=== PATIENT | female | born 1935 | race Caucasian/White ===

== ENCOUNTER 2016-07-22 17:48 | Inpatient (IN) | payer MEDICARE ==
[2016-07-22] MEDS ORDERED: SODIUM CHLORIDE 0.9% 500 ML IV STA (18:03)
[2016-07-22] MEDS ORDERED: NITROGLYCERIN SL TABS 0.4 MG TAB SUBLINGUAL STA ×2 (18:10→19:56)
[2016-07-22] MEDS ORDERED: ASPIRIN 81 MG CHEW PO STA (18:10)
--- NOTE | 2016-07-22 18:14 | ED ---
Chest Pain HPI <RaulHusam - Last Filed: 07/22/16 21:09> - General Source: patient, family, RN notes reviewed Mode of arrival: wheelchair Limitations: no limitations <Andreia Thompson - Last Filed: 07/22/16 21:19> - General Chief Complaint: Chest Pain Stated Complaint: chest pain Time Seen by Provider: 07/22/16 18:03 - History of Present Illness Initial Comments: Patient is an 81-year-old female presenting to the with chief complaint of chest pain heaviness and pain. She is reports that is been occurring for the entire day and seems to be worse with exertion. She reports that the pain is diminished when she is laying down and resting. She does have a history of A. fib and CHF and is currently on eliquis. Patient reports that she does feel nauseated. She also states that she's felt short of breath. She states that she's had no history of cardiac stents. Patient has a past medical history significant for breast, uterine cancer, it a TIA 6 years ago. She reports that she sees a gift consultant a [facility] however she does not recall the name and she last saw him approximately 4 months ago. She states she does have some chronic swelling of her lower legs and she denies any significant change number operator the past few days. Patient denies any cough. She denies any fever or chills. Patient denies any recent fever, chills, back pain, abdominal pain , nausea vomiting, numbness or tingling, dysuria or hematuria, constipation or diarrhea, headaches or visual changes, or any other current symptoms. ( Andreia Thompson) - Related Data Home Medications Medication Instructions Recorded Confirmed Anastrozole [Arimidex] 1 mg PO DAILY 07/22/16 07/22/16 Apixaban [Eliquis] 2.5 mg PO BID 07/22/16 07/22/16 Aspirin 81 mg PO DAILY 07/22/16 07/22/16 Furosemide [Lasix] 20 mg PO DAILY 07/22/16 07/22/16 Isosorbide Mononitrate ER [Imdur] 30 mg PO DAILY 07/22/16 07/22/16 Labetalol [Trandate] 200 mg PO BID 07/22/16 07/22/16 Latanoprost [Xalatan 0.005%] 1 drop LEFT EYE HS 07/22/16 07/22/16 Losartan Potassium [Cozaar] 100 mg PO DAILY 07/22/16 07/22/16 NIFEdipine [NIFEdipine ER] 30 mg PO DAILY 07/22/16 07/22/16 Simvastatin [Zocor] 10 mg PO HS 07/22/16 07/22/16 Allergies Allergy/AdvReac Type Severity Reaction Status Date / Time No Known Allergies Allergy Verified 07/22/16 18:26 Review of Systems ROS Other: All systems not noted in ROS Statement are negative. <Husam Carter - Last Filed: 07/22/16 21:09> ROS Other: All systems not noted in ROS Statement are negative. <Andreia Thompson - Last Filed: 07/22/16 21:19> ROS Statement: Those systems with pertinent positive or pertinent negative responses have been documented in the HPI. EKG Findings - EKG Comments: EKG Findings:: EKG shows atrial fibrillation ventricular rate 90 bpm. QRS duration is 74 ms. QT/QTc is 344/439 ms. Septal infarct age undetermined. <Andreia Thompson - Last Filed: 07/22/16 21:19> Past Medical History Past Medical History: Atrial Fibrillation, Cancer, Heart Failure Additional Past Medical History / Comment(s): breast, skin, endometrial cancers History of Any Multi-Drug Resistant Organisms: None Reported Additional Past Surgical History / Comment(s): left breast lumpectomy, Past Psychological History: No Psychological Hx Reported Smoking Status: Former smoker Past Alcohol Use History: None Reported Past Drug Use History: None Reported <Andreia Thompson - Last Filed: 07/22/16 21:19> General Exam <Husam Carter - Last Filed: 07/22/16 21:09> Limitations: no limitations General appearance: alert, in no apparent distress Head exam: Present: atraumatic, normocephalic, normal inspection Eye exam: Present: normal appearance, PERRL, EOMI. Absent: scleral icterus, conjunctival injection, periorbital swelling ENT exam: Present: normal exam, mucous membranes moist Neck exam: Present: normal inspection. Absent: tenderness, meningismus, lymphadenopathy Respiratory exam: Present: normal lung sounds bilaterally, other (evidence of mastectomy.). Absent: respiratory distress, wheezes, rales, rhonchi, stridor Cardiovascular Exam: Present: normal rhythm, normal heart sounds. Absent: regular rate (patient has limited S2 sound with afib.), systolic murmur, diastolic murmur, rubs, gallop, clicks GI/Abdominal exam: Present: soft, normal bowel sounds. Absent: distended, tenderness, guarding, rebound, rigid Extremities exam: Present: normal inspection, full ROM, normal capillary refill , pedal edema (3+ bilateral pedal edema. She reports that this is no significant change.). Absent: tenderness, joint swelling, calf tenderness Back exam: Present: normal inspection Neurological exam: Present: alert, oriented X3, CN II-XII intact Psychiatric exam: Present: normal affect, normal mood Skin exam: Present: warm, dry, intact, normal color. Absent: rash <Andreia Thompson - Last Filed: 07/22/16 21:19> - General Exam Comments Initial Comments: Patient is a pleasant 81-year-old female. She is hard of hearing. She is on appear to be in any acute distress. (Andreia Thompson) Course <Husam Carter - Last Filed: 07/22/16 21:09> <Andreia Thompson - Last Filed: 07/22/16 21:19> Vital Signs 07/22/16 07/22/16 07/22/16 17:51 18:43 20:11 Temperature 97.8 F Pulse Rate 61 118 H 73 Respiratory 18 18 20 Rate Blood Pressure 140/84 149/67 158/114 O2 Sat by Pulse 95 99 98 Oximetry - Reevaluation(s) Reevaluation #1: 07/22/16 18:41 Patient is reevaluated before receiving nitro and she reports that her pain is somewhat diminished. She recurrently rates it a 4 out of 10. She states that the pain subsides when she is resting and laying down. (Andreia Thompson) Reevaluation #2: Patient is felt to be given nitroglycerin and stated that she is virtually pain- free at this time we'll hold on nitro. (Andreia Thompson) Chest Pain MDM <Husam Carter - Last Filed: 07/22/16 21:09> <Andreia Thompson - Last Filed: 07/22/16 21:19> - [facility] Medical decision making. I discussed with the patient her discomfort was probably started yesterday continued today no pain at rest. Numbers show her BMP to be 7700 chest x-ray did not showing any significant CHF but she does have chronic peripheral edema. The patient's troponin was 0.6. And she is on L Oquist. Her EKG does not show any acute ST elevation. She is in chronic A. fib. The patient's case discussed with Dr. Gilmore, she'll be admitted to his service with cardiology consultation. Patient to continue on L Oquist for an at this time. Cardiology consult pending. Dr. Carter (Husam Carter) Patient is a 1-year-old female presenting to the with 1 day of chest pain with ambulation. She does have a history of A. fib and is currently on all questions. Patient upon arrival to the states that she has no chest pain at this time. She denies any shortness of breath. Patient's labs reveal that she has an elevated BNP of 7000 and elevated troponin of .069. Patient's gift consultant is at [facility]. She does not know the name of her gift consultant. Fundraiser will be consulted about starting the patient on heparin given the fact that she is currently on Eliquis. Patient's chest x-ray shows that the heart size is enlarged. No evidence of infiltrate or signs of atelectasis. Mediastinal structures are stable and grossly unremarkable. No evidence for hilar prominence. There is evidence of degenerative changes in the dorsal spine. Occlusion is no evidence of any acute pulmonary disease. The instructed by Dr. cruz. Discussed with Dr. Carter and he did a spacer. The patient. We consulted Dr. Snyder about the patient. (Andreia Thompson) Disposition <Husam Carter - Last Filed: 07/22/16 21:09> Time of Disposition: 21:18 <Andreia Thompson - Last Filed: 07/22/16 21:19> Clinical Impression: CHF (congestive heart failure), Chest pain, Chronic a-fib Disposition: ADMITTED IP TO THIS [facility] Condition: Good Referrals: Nonstaff,Physician [Primary Care Provider] - 1-2 days
--- NOTE | 2016-07-22 18:57 | XR ---
EXAMINATION TYPE: XR chest 2V DATE OF EXAM: 07/22/2016 6:53 PM COMPARISON: NONE HISTORY: Shortness of breath TECHNIQUE: Frontal and lateral views of the chest are obtained. FINDINGS: Scattered senescent parenchymal changes noted. Hyperinflation compatible with COPD. No evidence for infiltrate. No evidence for atelectasis. Heart size is enlarged. Mediastinal structures are stable and grossly unremarkable. No evidence for hilar prominence. Degenerative changes dorsal spine. IMPRESSION: 1. No evidence for acute pulmonary disease.
[2016-07-22 19:01] LABS: Basophils % (A) 0 %; CH 29.5; CHCM 32.5; Eosinophils # (A) 0.2 k/uL (0-0.7); Eosinophils % (A) 2 %; HDW 2.51; HGB 13.2 gm/dL (11.4-16.0); Luc % (Auto) 3; Lymphocytes # (A) 2.3 k/uL (1.0-4.8); Lymphocytes % (A) 32 %; MCH 29.3 pg (25.0-35.0); MCHC 32.2 g/dL (31.0-37.0); Mean Platelet Volume 7.6; Monocytes # (A) 0.4 k/uL (0-1.0); Monocytes % (A) 6 %; Neutrophils # (A) 4.1 k/uL (1.3-7.7); Neutrophils % (A) 57 %; RBC 4.51 m/uL (3.80-5.40); RDW 13.9 % (11.5-15.5); WBC 7.1 k/uL (3.8-10.6); WBC (Perox) 6.98
[2016-07-22 19:13] LABS: ALT 27 U/L (9-52); AST 27 U/L (14-36); Alkaline Phosphatase 75 U/L (38-126); Anion Gap 11 mmol/L; Blood Urea Nitrogen 22 mg/dL (7-17); Calcium 9.7 mg/dL (8.4-10.2); Carbon Dioxide 24 mmol/L (22-30); Chloride 108 mmol/L (98-107); Glucose 133 mg/dL (74-99); Magnesium 1.4 mg/dL (1.6-2.3); Non-African American GFR(MDRD) 54 (>60 ml/min/1.73 sqM); Potassium 4.4 mmol/L (3.5-5.1); Sodium 143 mmol/L (137-145); Total Bilirubin 0.8 mg/dL (0.2-1.3); Total Protein 6.5 g/dL (6.3-8.2)
[2016-07-22 19:41] LABS: Creatine Kinase MB 1.9 ng/mL (0.0-2.4)
[2016-07-22 19:47] LABS: INR 1.1 (<1.1); Partial Thromboplastin Time 24.8 sec (22.0-30.0); Prothrombin Time 10.7 sec (9.0-12.0)
[2016-07-22 19:49] LABS: Troponin I 0.609 ng/mL (0.000-0.034)
[2016-07-22] MEDS ORDERED: NITROGLYCERIN SL TABS 0.4 MG TAB SUBLINGUAL PRN (21:10)
[2016-07-23] MEDS ORDERED: ALBUTEROL NEBULIZED 2.5 MG/3 ML INHALATION STA (01:24)
[2016-07-23 01:56] LABS: Troponin I 0.575 ng/mL (0.000-0.034)
[2016-07-23 07:49] LABS: Cholesterol 122 mg/dL (<200); HDL Cholesterol 50 mg/dL (40-60); Triglycerides 144 mg/dL (<150)
[2016-07-23 08:24] LABS: Troponin I 0.519 ng/mL (0.000-0.034)
[2016-07-23] MEDS: ANASTROZOLE 1 MG TAB PO SCH (08:58)
[2016-07-23] MEDS: APIXABAN 2.5 MG TABLET PO SCH ×2 (08:58→20:06)
[2016-07-23] MEDS: ASPIRIN 325 MG TAB PO SCH (08:59)
[2016-07-23] MEDS: LABETALOL 200 MG TAB PO SCH ×2 (08:59→20:06)
[2016-07-23] MEDS: ISOSORBIDE MONONITRATE ER 30 MG TAB.ER.24H PO SCH (08:59)
[2016-07-23] MEDS: LOSARTAN 50 MG TAB PO SCH (09:00)
[2016-07-23] MEDS: NIFEdipine XL 30 MG TAB.ER.24 PO SCH (09:00)
[2016-07-23] MEDS ORDERED: ASPIRIN 81 MG CHEW PO SCH (09:00)
[2016-07-23] MEDS ORDERED: FUROSEMIDE 20 MG TAB PO SCH (09:00)
[2016-07-23] MEDS ORDERED: ENALAPRILAT 1.25 MG/ML 1 ML VIAL IVP PRN (09:00)
[2016-07-23] MEDS ORDERED: METOPROLOL TARTRATE 5 MG/5 ML VIAL IVP PRN (09:13)
[2016-07-23] MEDS ORDERED: FAMOTIDINE 20 MG TAB PO SCH (09:15)
--- NOTE | 2016-07-23 09:51 | P.CRDCN ---
History of Present Illness Consult date: 07/23/16 History of present illness: This is a pleasant 81-year-old female patient who never seen a ripper operator in this area with a past medical history significant for chronic atrial fibrillation, hypertension, dyslipidemia, lives in assisted living and who is also a poor historian was brought to the emergency room because she was not feeling well. According to the emergency room note, the patient presented complaining of chest discomfort. When I interviewed the patient, she denied having any chest pain or chest discomfort but the patient is slightly confused. Currently, the patient is in A. fib with RVR. Clinically, the patient seems to be short of breath. The chest x-ray showed findings consistent with CHF. The BNP came in to be elevated. The EKG showed A. fib with T-wave inversion in the lateral leads. The cardiac enzymes came in to be slightly abnormal. The patient was ruled in for acute coronary event. The patient is in congestive heart failure exacerbation along was A. fib with RVR and she has infarcted. I will obtain an echocardiogram was Doppler. Start the patient on Lasix IV. Continue monitor the kidney function closely. Continue the aspirin and beta glen. I am going to start the patient on Cardizem drip for now and follow- up with her. Overall, I don't think the patient is a good candidate to have invasive approach and heart catheterization. Past Medical History Past Medical History: Atrial Fibrillation, Cancer, Heart Failure, Hyperlipidemia , Syncope Additional Past Medical History / Comment(s): L breast cancer with surgery, skin cancer with removals, endometrial cancers with surgery, TIA 2008, left caratid dx, chronic lower leg edema especially left leg, [place] bilaterally with L ear worse, History of Any Multi-Drug Resistant Organisms: None Reported Past Surgical History: Breast Surgery, Hysterectomy Additional Past Surgical History / Comment(s): left breast lumpectomy, post op L breast incision dehisence with surgery, hysterectomy with lymphectomy, skin cancer removals, pt denies cholecystectomy/hiatal hernia repair but were listed in PMH. Past Anesthesia/Blood Transfusion Reactions: No Reported Reaction Past Psychological History: No Psychological Hx Reported Additional Psychological History / Comment(s): Pt resides in an assisted living apartment (cannot recall the name at this time). She states she can make her own meals or go to the [facility]. She manages her own medications. Her daughter checks on her often and [employer] rules footballer take her to appts. Smoking Status: Former smoker Past Alcohol Use History: None Reported Additional Past Alcohol Use History / Comment(s): Pt states she started smoking in 1952 and quit in 1983. Past Drug Use History: None Reported - Past Family History Mother Family Medical History: No Reported History Father History Unknown: Yes Additional Family Medical History / Comment(s): Father when pt was young after being run over by a vehicle. Medications and Allergies Home Medications Medication Instructions Recorded Confirmed Type Anastrozole [Arimidex] 1 mg PO DAILY 07/22/16 07/22/16 History Apixaban [Eliquis] 2.5 mg PO BID 07/22/16 07/22/16 History Aspirin 81 mg PO DAILY 07/22/16 07/22/16 History Furosemide [Lasix] 20 mg PO DAILY 07/22/16 07/22/16 History Isosorbide Mononitrate ER [Imdur] 30 mg PO DAILY 07/22/16 07/22/16 History Labetalol [Trandate] 200 mg PO BID 07/22/16 07/22/16 History Latanoprost [Xalatan 0.005%] 1 drop LEFT EYE HS 07/22/16 07/22/16 History Losartan Potassium [Cozaar] 100 mg PO DAILY 07/22/16 07/22/16 History NIFEdipine [NIFEdipine ER] 30 mg PO DAILY 07/22/16 07/22/16 History Simvastatin [Zocor] 10 mg PO HS 07/22/16 07/22/16 History Allergies Allergy/AdvReac Type Severity Reaction Status Date / Time No Known Allergies Allergy Verified 07/22/16 18:26 Physical Exam Vitals: Vital Signs Temp Pulse Resp BP Pulse Ox 07/23/16 09:42 114 H 32 H 124/80 97 07/23/16 09:09 143 H 36 H 191/91 100 07/23/16 08:27 148 H 40 H 100 07/23/16 07:00 97 34 H 169/102 100 07/23/16 01:27 79 07/22/16 23:13 98.6 F 111 H 18 168/85 99 07/22/16 21:48 97.8 F 103 H 20 165/85 100 - Constitutional General appearance: no acute distress - Respiratory Respiratory: bilateral: diminished - Cardiovascular Rhythm: irregularly irregular Heart sounds: normal: S1, S2 Results 07/22/16 18:40 07/22/16 18:40 Cardiac Enzymes 07/23/16 07/23/16 Range/Units 00:52 07:14 CK-MB (CK-2) 2.0 2.7 H* (0.0-2.4) ng/mL Troponin I 0.575 H* 0.519 H* (0.000-0.034) ng/mL Lipids 07/23/16 Range/Units 07:14 Triglycerides 144 (<150) mg/dL Cholesterol 122 (<200) mg/dL HDL Cholesterol 50 (40-60) mg/dL Current Medications Generic Name Dose Route Start Last Admin Trade Name Freq PRN Reason Stop Dose Admin Anastrozole 1 mg 07/23/16 09:00 07/23/16 08:58 Arimidex PO 1 mg DAILY BUNNY Administration Apixaban 2.5 mg 07/23/16 09:00 07/23/16 08:58 Eliquis PO 2.5 mg BID BUNNY Administration Aspirin 325 mg 07/23/16 09:00 07/23/16 08:59 Aspirin PO 325 mg DAILY BUNNY Administration Atorvastatin Calcium 5 mg 07/23/16 21:00 Lipitor PO HS [facility] Enalaprilat 1.25 mg 07/23/16 09:00 07/23/16 09:06 Vasotec IVP 1.25 mg Q4HR PRN Administration Blood Pressure - High Famotidine 20 mg 07/23/16 09:15 Pepcid PO BID [facility] Furosemide 20 mg 07/23/16 09:00 07/23/16 08:59 Lasix PO 20 mg DAILY BUNNY Administration Isosorbide Mononitrate 30 mg 07/23/16 09:00 07/23/16 08:59 Imdur PO 30 mg DAILY BUNNY Administration Labetalol HCl 200 mg 07/23/16 09:00 07/23/16 08:59 Trandate PO 200 mg BID BUNNY Administration Latanoprost 1 drops 07/23/16 21:00 Xalatan 0.005% LEFT EYE HS [facility] Losartan Potassium 100 mg 07/23/16 09:00 07/23/16 09:00 Cozaar PO 100 mg DAILY BUNNY Administration Metoprolol Tartrate 5 mg 07/23/16 09:13 Lopressor IVP Q6HR PRN Heart Rate - OVER 120 Nifedipine 30 mg 07/23/16 09:00 07/23/16 09:00 Procardia Xl PO 30 mg DAILY BUNNY Administration Nitroglycerin 0.4 mg 07/22/16 21:10 Nitrostat SUBLINGUAL Q5M PRN Chest Pain Assessment and Plan Plan: Assessment #1 congestive heart failure exacerbation and known if it's systolic or diastolic related #2 acute non-ST elevation myocardial infarction #3 atrial fibrillation with RVR #4 chronic kidney disease #5 multiple comorbidities Plan #1 start the patient on Lasix IV #2 monitor the kidney function and electrolytes #3 start the patient on Cardizem drip #4 continue anticoagulation with Eliquis #5 echocardiogram
--- NOTE | 2016-07-23 10:27 | ECHOF ---
Referral Reason:lv fxn MEASUREMENTS -------- HEIGHT: 152.4 cm WEIGHT: 56.7 kg BP: RVIDd: 2.9 cm (< 3.3) IVSd: 1.2 cm (0.6 - 1.1) LVIDd: 3.6 cm (3.9 - 5.3) LVPWd: 1.2 cm (0.6 - 1.1) IVSs: 1.4 cm LVIDs: 3.0 cm LVPWs: 1.4 cm LAESV Index (A-L): 53.46 ml/m Ao Diam: 2.3 cm (2.0 - 3.7) AV Cusp: 1.0 cm (1.5 - 2.6) LA Diam: 5.0 cm (2.7 - 3.8) MV EXCURSION: 12.538 mm (> 18.000) MV EF SLOPE: 50 mm/s (70 - 150) EPSS: 1.1 cm MV E Ion: 1.22 m/s MV DecT: 200 ms MV A Ion: 0.30 m/s MV E/A Ratio: 4.03 AR PHT: 445 ms RAP: 5.00 mmHg RVSP: 38.18 mmHg FINDINGS -------- Sinus rhythm. This was a technically adequate study. There is mild concentric left ventricular hypertrophy. There is severe global hypokinesis of LV . Overall left ventricular systolic function is severely impaired with, an EF between 20 - 25 %. The right ventricle is normal in size. LA is severely dilated >40 ml/m2 The right atrial size is normal. There is mild aortic valve sclerosis. There is mild aortic regurgitation. Mild mitral annular calcification present. Mild mitral regurgitation is present. Mild tricuspid regurgitation present. There is mild pulmonary hypertension. The right ventricular systolic pressure, as measured by Doppler, is 38.18mmHg. The aortic root size is normal. There is no pericardial effusion. CONCLUSIONS -------- 1. There is mild concentric left ventricular hypertrophy. 2. There is mild pulmonary hypertension. 3. The right ventricular systolic pressure, as measured by Doppler, is 38.18mmHg. 4. The aortic root size is normal. 5. There is no pericardial effusion. 6. There is severe global hypokinesis of LV . 7. Overall left ventricular systolic function is severely impaired with, an EF between 20 - 25 %. 8. LA is severely dilated >40 ml/m2 9. There is mild aortic valve sclerosis. 10. There is mild aortic regurgitation. 11. Mild mitral annular calcification present. 12. Mild mitral regurgitation is present. 13. Mild tricuspid regurgitation present. SENIOR FRONT END WEB DEVELOPER: Eda Dominguez RDCS
--- NOTE | 2016-07-23 11:58 | HP ---
DATE OF ADMISSION: CHIEF COMPLAINT: Chest pain, shortness of breath. HISTORY OF PRESENT ILLNESS: This is the first known admission for this 81-year-old white female. She usually doctors at [facility]. She developed some chest discomfort and shortness of breath and came to the emergency room. She denies diaphoresis. She is a poor historian. She had no neurologic deficits, palpitations, syncope, orthopnea, PND, etc. REVIEW OF SYSTEMS: Otherwise unremarkable and she has no other complaints. Past medical history, family history and personal and social histories are otherwise unremarkable and further the details will be obtained from her primary care provider in [place]. She is not allergic to any medication and apparently was on eyedrops for glaucoma, labetalol 200 mg b.i.d., isosorbide mononitrate 30 mg a day, Lasix 20 mg a day, Arimidex 1 mg once a day, simvastatin 10 mg at bedtime, nifedipine 30 mg once a day, Losartan 100 mg once a day, 81 mg of aspirin and apixaban 2.5 mg b.i.d. She does not smoke. Past medical history, family history and personal and social histories are significant in that she is not allergic to any medication, but she has been treated for endometrial carcinoma and somehow this resulted in chronic edema in the left lower extremity. PHYSICAL EXAMINATION: Blood pressure of 206/119 with a pulse of 86, respirations 30 and she is afebrile. GENERAL: She appeared to be slender, well developed, well nourished in no acute distress. Skin color is normal. Skin is warm and dry. Lymph nodes are not enlarged. Head, ears, eyes, nose, mouth, and throat were normal. Neck veins were not distended. There is either a transmitted murmur or carotid bruits. Chest demonstrated no rales or rhonchi. Cardiac exam demonstrated tachycardia and there was a grade 3/6 diastolic and systolic murmur. ABDOMEN: Soft and nontender. There is no visceromegaly or masses. Extremities demonstrated the left leg being more edematous than the right and she had significant varicose veins in the right lower leg. Neurologically, she is intact. IMPRESSION: 1. Chest pain. 2. Hypertension. 3. Atrial fibrillation. 4. Cardiac murmur. 5. History of endometrial carcinoma. 6. Chronic ( ) or lymphatic edema of the left leg. 7. Varicose veins of the right leg. PLAN: 1. Control hypertension. 2. Rule out significant coronary artery disease.
--- NOTE | 2016-07-23 12:02 | PN ---
DATE OF SERVICE: 07/23/2016 CHIEF COMPLAINT: Hypertension and shortness of breath. HISTORY OF PRESENT ILLNESS: This lady's blood pressure is still quite high, but she is having no chest pain, neurologic difficulties, shortness of breath, etc. PHYSICAL EXAM: Chest is clear. Cardiac exam demonstrates her murmur and she is in atrial fibrillation. ABDOMEN: Soft, nontender. Extremities are unchanged. IMPRESSION: 1. Hypertension. 2. Congestive heart failure. 3. Atrial fibrillation. 4. History of carcinoma of the uterus. PLAN: 1. Control hypertension. 2. Consult Cardiology.
[2016-07-23 13:19] VITALS: BMI 26.0
--- NOTE | 2016-07-23 15:19 | P.HPIM ---
History of Present Illness H&P Date: 07/22/16 Chief Complaint: Chest pressure heart palpitation shortness of breath This is an 81-year-old female who presented on the day of admission to the emergency room to be evaluated for a chief complaint of developing shortness of breath with exertion chest tightness with a nausea sensation. In the emergency room the 12-lead EKG showed atrial fibrillation heart rate was in the 90s to 120s was also noted in the emergency room the patient's blood pressure was significantly elevated systolic 200s. Monitor did show atrial fibrillation the heart rate was in the 120s. Patient is a poor historian has poor past medical history recall. Health history has been obtained from reviewing prior computerized record ER record and interviewing the patient and nursing staff. Patient reportedly lives in assisted living apartment and has been fairly independent. Did note the patient is on a elquist presume for chronic atrial fibrillation. Patient states that she does see a heart doctor at [facility] cannot recall the name states it's been months since she seen him last. Additionally patient was noted to have swelling in the lower extremities which the patient states is chronic left lower extremity greater than the right. A cardiology consultation was requested. An echocardiogram was obtained. It shows left ventricular systolic function severely impaired with an EF between 20 and 25%. There is mild pulmonary hypertension. There is mild concentric left ventricular hypertrophy did note the troponin are elevated as well as a BNP which is 18,000 Review of Systems Difficult to obtain patient has no adequate past medical history recall Past Medical History Past Medical History: Atrial Fibrillation, Cancer, Heart Failure, Hyperlipidemia , Syncope Additional Past Medical History / Comment(s): L breast cancer with surgery, skin cancer with removals, endometrial cancers with surgery, TIA 2008, left caratid dx, chronic lower leg edema especially left leg, [place] bilaterally with L ear worse, History of Any Multi-Drug Resistant Organisms: None Reported Past Surgical History: Breast Surgery, Hysterectomy Additional Past Surgical History / Comment(s): left breast lumpectomy, post op L breast incision dehisence with surgery, hysterectomy with lymphectomy, skin cancer removals, pt denies cholecystectomy/hiatal hernia repair but were listed in PMH. Past Anesthesia/Blood Transfusion Reactions: No Reported Reaction Past Psychological History: No Psychological Hx Reported Additional Psychological History / Comment(s): Pt resides in an assisted living apartment (cannot recall the name at this time). She states she can make her own meals or go to the [facility]. She manages her own medications. Her daughter checks on her often and taffy candy maker take her to app. Smoking Status: Former smoker Past Alcohol Use History: None Reported Additional Past Alcohol Use History / Comment(s): Pt states she started smoking in 1951 and quit in 1983. Past Drug Use History: None Reported - Past Family History Mother Family Medical History: No Reported History Father History Unknown: Yes Additional Family Medical History / Comment(s): Father when pt was young after being run over by a vehicle. Medications and Allergies Home Medications Medication Instructions Recorded Confirmed Type Anastrozole [Arimidex] 1 mg PO DAILY 07/22/16 07/22/16 History Apixaban [Eliquis] 2.5 mg PO BID 07/22/16 07/22/16 History Aspirin 81 mg PO DAILY 07/22/16 07/22/16 History Furosemide [Lasix] 20 mg PO DAILY 07/22/16 07/22/16 History Isosorbide Mononitrate ER [Imdur] 30 mg PO DAILY 07/22/16 07/22/16 History Labetalol [Trandate] 200 mg PO BID 07/22/16 07/22/16 History Latanoprost [Xalatan 0.005%] 1 drop LEFT EYE HS 07/22/16 07/22/16 History Losartan Potassium [Cozaar] 100 mg PO DAILY 07/22/16 07/22/16 History NIFEdipine [NIFEdipine ER] 30 mg PO DAILY 07/22/16 07/22/16 History Simvastatin [Zocor] 10 mg PO HS 07/22/16 07/22/16 History Allergies Allergy/AdvReac Type Severity Reaction Status Date / Time No Known Allergies Allergy Verified 07/22/16 18:26 Physical Exam Vitals: Vital Signs Temp Pulse Resp BP Pulse Ox 07/23/16 12:47 98.3 F 88 20 117/66 98 07/23/16 10:55 74 28 H 112/63 98 07/23/16 09:42 114 H 32 H 124/80 97 07/23/16 09:09 143 H 36 H 191/91 100 07/23/16 08:27 148 H 40 H 100 07/23/16 07:00 97 34 H 169/102 100 07/23/16 01:27 79 07/22/16 23:13 98.6 F 111 H 18 168/85 99 07/22/16 21:48 97.8 F 103 H 20 165/85 100 Intake and Output 07/22/16 07/23/16 07/23/16 22:59 06:59 14:59 Output Total 125 Balance -125 Output: Urine 125 Other: Weight 56.6 kg 56.6 kg Patient Weight 07/24/16 06:59 Weight 56.6 kg GENERAL APPEARANCE: 81-year-old female patient is alert, oriented, in no acute distress. VITAL SIGNS: HEENT: Head is normocephalic and atraumatic. Pupils are equal and reactive. The nares are patent. Oropharynx is clear without lesions. NECK: Supple without lymphadenopathy. Traches midline. HEART: S1, S2. Regular rate and rhythm. LUNGS: No crackles or wheezes are heard. ABDOMEN: Soft, nontender, nondistended with good bowel sounds. No peritoneal signs. No palpable organomegaly or masses. EXTREMITIES: Normal skin color and turgor. No cyanosis, rash, ulceration, clubbing or edema. Radial pedal pulses are 2/4 bilaterally. NEUROLOGICAL: No focal deficits. Strength and sensation are grossly intact. Results CBC & Chem 7: 07/22/16 18:40 07/22/16 18:40 Labs: Abnormal Lab Results - Last 24 Hours (Table) 07/23/16 07/23/16 07/23/16 Range/Units 00:52 07:14 09:13 Magnesium 1.4 L (1.6-2.3) mg/dL CK-MB (CK-2) 2.7 H* (0.0-2.4) ng/mL Troponin I 0.575 H* 0.519 H* (0.000-0.034) ng/mL Thrombosis Risk Factor Assmnt - Choose All That Apply Any of the Below Risk Factors Present?: Yes Each Factor Represents 1 point: Heart failure (<1month), Obesity (BMI >25) Other Risk Factors: Yes Each Risk Factor Represents 2 Points: Malignancy Each Risk Factor Represents 3 Points: Age 75 years or older Other congenital or acquired thrombophilia - If yes, enter type in comment: No Thrombosis Risk Factor Assessment Total Risk Factor Score: 7 Thrombosis Risk Factor Assessment Level: High Risk Assessment and Plan Plan: Impression Present on admission shortness of breath suspect multifactorial due to atrial fibrillation with RVR with acute decompensated congestive heart failure systolic dysfunction EF 20-25% on echocardiogram 07/23/2016 Chronic atrial fibrillation Dyslipidemia Present on admission hypertension urgency Present on admission chest pain suspect due to non-ST elevated [place] History of a TIA Chronic lower extremity edema left greater than the right Hard of hearing bilateral History of left breast cancer History of hypertension Echocardiogram 07/23/2016 mild pulmonary hypertension Physical debility suspect chronic Present on admission hypo-magnesium Plan Continue with recommendations by cardiology service Resume home meds as appropriate Check labs keep electrolytes in the therapeutic range DVT and GI prophylaxis Magnesium to be replaced Continue Lasix 40 IV every 12 monitor the response Further recommendations pending will follow The above dictated assessment and findings were discussed with dr quirino Bray and the plan of care have been dictated as directed. Latonya Correa nurse practitioner acting as a scribe for dr win
[2016-07-23] MEDS: MAGNESIUM SULFATE-D5W PMX 1 GM in DEXTROSE/WATER 1 100ML.BAG IVPB SCH ×3 (15:59→17:37)
[2016-07-23] MEDS: FUROSEMIDE 10 MG/ML 4 ML VIAL IV SCH (20:06)
[2016-07-23] MEDS: MAGNESIUM OXIDE 400 MG TAB PO SCH (20:07)
[2016-07-23] MEDS: LATANOPROST 0.005% OPHTH DROPS 2.5 ML BTL LEFT EYE SCH (20:07)
[2016-07-23] MEDS ORDERED: LORazepam 1 MG TAB PO PRN (20:41)
[2016-07-23] MEDS: ATORVASTATIN 10 MG TAB PO SCH (22:09)
[2016-07-24 06:09] LABS: Basophils % (A) 0 %; CH 29.3; CHCM 31.7; Eosinophils # (A) 0.2 k/uL (0-0.7); Eosinophils % (A) 4 %; HCT 36.9 % (34.0-46.0); HDW 2.46; HGB 11.7 gm/dL (11.4-16.0); Luc # (Auto) 0.16; Luc % (Auto) 3; Lymphocytes # (A) 1.6 k/uL (1.0-4.8); Lymphocytes % (A) 27 %; MCH 29.4 pg (25.0-35.0); MCHC 31.7 g/dL (31.0-37.0); MCV 92.6 fL (80.0-100.0); Mean Platelet Volume 7.7; Monocytes # (A) 0.4 k/uL (0-1.0); Monocytes % (A) 7 %; Neutrophils # (A) 3.5 k/uL (1.3-7.7); Neutrophils % (A) 59 %; RBC 3.98 m/uL (3.80-5.40); RDW 13.8 % (11.5-15.5); WBC 5.9 k/uL (3.8-10.6); WBC (Perox) 5.96
[2016-07-24 06:20] LABS: ALT 29 U/L (9-52); AST 26 U/L (14-36); Alkaline Phosphatase 69 U/L (38-126); Anion Gap 12 mmol/L; Blood Urea Nitrogen 22 mg/dL (7-17); Carbon Dioxide 23 mmol/L (22-30); Chloride 109 mmol/L (98-107); Glucose 96 mg/dL (74-99); Magnesium 1.3 mg/dL (1.6-2.3); Non-African American GFR(MDRD) 56 (>60 ml/min/1.73 sqM); Potassium 3.7 mmol/L (3.5-5.1); Sodium 144 mmol/L (137-145); Total Bilirubin 1.1 mg/dL (0.2-1.3); Total Protein 5.7 g/dL (6.3-8.2)
[2016-07-24] MEDS: FAMOTIDINE 20 MG TAB PO SCH (08:12)
[2016-07-24] MEDS: ASPIRIN 325 MG TAB PO SCH (08:12)
[2016-07-24] MEDS: FUROSEMIDE 10 MG/ML 4 ML VIAL IV SCH ×2 (08:12→20:14)
[2016-07-24] MEDS: ANASTROZOLE 1 MG TAB PO SCH (08:12)
[2016-07-24] MEDS: APIXABAN 2.5 MG TABLET PO SCH ×2 (08:12→20:14)
[2016-07-24] MEDS: LOSARTAN 50 MG TAB PO SCH (08:13)
[2016-07-24] MEDS: MAGNESIUM OXIDE 400 MG TAB PO SCH ×2 (08:13→20:14)
[2016-07-24] MEDS: NIFEdipine XL 30 MG TAB.ER.24 PO SCH (08:13)
[2016-07-24] MEDS: LABETALOL 200 MG TAB PO SCH ×2 (08:13→20:14)
[2016-07-24] MEDS: ISOSORBIDE MONONITRATE ER 30 MG TAB.ER.24H PO SCH (08:13)
[2016-07-24 08:38] LABS: Creatine Kinase MB 2.7 ng/mL (0.0-2.4)
[2016-07-24] MEDS: MAGNESIUM SULFATE-D5W PMX 1 GM in DEXTROSE/WATER 1 100ML.BAG IVPB SCH ×2 (08:43→10:18)
--- NOTE | 2016-07-24 11:04 | P.PN ---
Subjective Principal diagnosis: CHF/A. fib This is a pleasant 81-year-old female patient who never seen a senior information security analyst in this area with a past medical history significant for chronic atrial fibrillation, hypertension, dyslipidemia, lives in assisted living and who is also a poor historian was brought to the emergency room because she was not feeling well. According to the emergency room note, the patient presented complaining of chest discomfort. When I interviewed the patient, she denied having any chest pain or chest discomfort but the patient is slightly confused. Currently, the patient is in A. fib with RVR. Clinically, the patient seems to be short of breath. The chest x-ray showed findings consistent with CHF. The BNP came in to be elevated. The EKG showed A. fib with T-wave inversion in the lateral leads. The cardiac enzymes came in to be slightly abnormal. The patient was ruled in for acute coronary event. The patient's diagnosed was congestive heart failure exacerbation along was A. fib with RVR. On follow-up with her today, she is feeling a bit better. She continues to be in A. fib with controlled heart rates. She continues to be on Lasix IV and the kidney function seems to be stable. I will continue the patient on Lasix IV for additional 24 hours. Regarding the acute non-ST elevation myocardial infarction, would consider conservative medical approach in view of the patient underlying dementia and poor functional capacity. She is on aspirin, statin, beta glen and we'll continue that. I will follow-up with the echocardiogram. Objective - Vital Signs Vital signs: Vital Signs Temp 97.1 F L 07/24/16 08:00 Pulse 84 07/24/16 08:00 Resp 18 07/24/16 08:00 BP 177/75 07/24/16 08:00 Pulse Ox 95 07/24/16 08:00 Intake & Output 07/23/16 07/24/16 07/24/16 18:59 06:59 18:59 Intake Total 125 Output Total 125 12 Balance 0 -12 Weight 56.6 kg 57.3 kg Intake: Oral 125 Output: Urine 125 12 Other: # Voids 1 1 - Constitutional General appearance: Present: no acute distress - Respiratory Respiratory: bilateral: diminished - Cardiovascular Rhythm: irregularly irregular Heart sounds: normal: S1, S2 Abnormal Heart Sounds: Present: systolic murmur - Labs CBC & Chem 7: 07/24/16 05:51 07/24/16 05:51 Labs: Abnormal Lab Results - Last 24 Hours (Table) 07/23/16 07/24/16 Range/Units 07:14 05:51 Chloride 109 H (98-107) mmol/L BUN 22 H (7-17) mg/dL Magnesium 1.3 L (1.6-2.3) mg/dL CK-MB (CK-2) 2.7 H* (0.0-2.4) ng/mL Troponin I 0.519 H* (0.000-0.034) ng/mL Total Protein 5.7 L (6.3-8.2) g/dL Albumin 3.1 L (3.5-5.0) g/dL Assessment and Plan Plan: Assessment #1 congestive heart failure exacerbation and known if it's systolic or diastolic related #2 acute non-ST elevation myocardial infarction #3 atrial fibrillation with RVR #4 chronic kidney disease #5 multiple comorbidities Plan #1 continue the IV Lasix for additional 24 hours #2 monitor the kidney function and electrolytes #3 continue the aspirin, metoprolol, and statin #4 continue anticoagulation with Eliquis #5 follow-up on echocardiogram
--- NOTE | 2016-07-24 13:59 | PN ---
CHIEF COMPLAINT: Hypertension, chest pain, CHF and atrial fibrillation. HISTORY OF PRESENT ILLNESS: This lady is awake and alert, doing a little bit better, but she is somewhat confused, which is probably a delirium. Blood pressure is still high. PHYSICAL EXAM: Blood pressure is 177/85. HEENT is normal and her chest is clear and cardiac exam is unchanged, The abdomen is soft and nontender. IMPRESSION: 1. Atrial fibrillation. 2. Uncontrolled hypertension. 3. Congestive heart failure. 4. Delirium. PLAN: Repeat labs and continue efforts to control hypertension.
[2016-07-24] MEDS ORDERED: MAGNESIUM SULFATE-D5W PMX 1 GM in DEXTROSE/WATER 1 100ML.BAG IVPB SCH (14:30)
[2016-07-24] MEDS: LATANOPROST 0.005% OPHTH DROPS 2.5 ML BTL LEFT EYE SCH (20:13)
[2016-07-24] MEDS: ATORVASTATIN 10 MG TAB PO SCH (20:14)
[2016-07-25 00:31] LABS: Appearance,Urine Clear (Clear); Bilirubin,Urine Negative (Negative); Glucose,Urine (UA) Negative (Negative); Ketones,Urine Negative (Negative); Leukocyte Esterase,Urine Small (Negative); Nitrite,Urine Negative (Negative); Particle Count 360; Protein,Urine Negative (Negative); RBC,Urine 1 /hpf (0-5); Specific Gravity,Urine 1.004 (1.001-1.035); Squamous Epithelial Cell,Urine 1 /hpf (0-4); UA Billing (MACRO vs. MICRO) MICRO; Urobilinogen,Urine <2.0 mg/dL (<2.0); WBC,Urine 1 /hpf (0-5)
[2016-07-25 06:37] LABS: ALT 25 U/L (9-52); AST 24 U/L (14-36); Alkaline Phosphatase 73 U/L (38-126); Anion Gap 10 mmol/L; Blood Urea Nitrogen 21 mg/dL (7-17); Calcium 8.8 mg/dL (8.4-10.2); Carbon Dioxide 28 mmol/L (22-30); Chloride 103 mmol/L (98-107); Glucose 87 mg/dL (74-99); Magnesium 1.8 mg/dL (1.6-2.3); Non-African American GFR(MDRD) 60 (>60 ml/min/1.73 sqM); Sodium 141 mmol/L (137-145); Total Bilirubin 0.8 mg/dL (0.2-1.3); Total Protein 5.9 g/dL (6.3-8.2)
[2016-07-25] MEDS: FUROSEMIDE 10 MG/ML 4 ML VIAL IV SCH (08:05)
[2016-07-25] MEDS: ISOSORBIDE MONONITRATE ER 30 MG TAB.ER.24H PO SCH (08:05)
[2016-07-25] MEDS: LOSARTAN 50 MG TAB PO SCH (08:06)
[2016-07-25] MEDS: ANASTROZOLE 1 MG TAB PO SCH (08:06)
[2016-07-25] MEDS: LABETALOL 200 MG TAB PO SCH (08:07)
[2016-07-25] MEDS: MAGNESIUM OXIDE 400 MG TAB PO SCH (08:07)
[2016-07-25] MEDS: NIFEdipine XL 30 MG TAB.ER.24 PO SCH (08:07)
[2016-07-25] MEDS: FAMOTIDINE 20 MG TAB PO SCH (08:07)
[2016-07-25] MEDS: APIXABAN 2.5 MG TABLET PO SCH (08:07)
[2016-07-25] MEDS: ASPIRIN 325 MG TAB PO SCH (08:08)
[2016-07-25 09:28] VITALS: PULSE 88; RESP 18; TEMP 97.4
[2016-07-25 11:24] LABS: Glucose,Whole Blood 86 mg/dL (75-99)
[2016-07-25] MEDS ORDERED: SPIRONOLACTONE 25 MG TAB PO SCH (11:30)
[2016-07-25 12:59] VITALS: BP 101/50
--- NOTE | 2016-07-25 15:07 | P.DS ---
Providers Date of admission: 07/22/16 21:11 Expected date of discharge: 07/25/16 Attending physician: Fei Win Consults: Dr. Vinson cardiology Primary care physician: Physician Nonstaff Hospital Course: This is an 81-year-old female who presented on the day of admission to the emergency room to be evaluated for a chief complaint of developing shortness of breath with exertion chest tightness with a nausea sensation. In the emergency room the 12-lead EKG showed atrial fibrillation heart rate was in the 90s to 120s was also noted in the emergency room the patient's blood pressure was significantly elevated systolic 200s. Monitor did show atrial fibrillation the heart rate was in the 120s. Patient is a poor historian has poor past medical history recall. Health history has been obtained from reviewing prior computerized record ER record and interviewing the patient and nursing staff. Patient reportedly lives in assisted living apartment and has been fairly independent. Did note the patient is on a elquist presume for chronic atrial fibrillation. Patient states that she does see a heart doctor at [facility] cannot recall the name states it's been months since she seen him last. Additionally patient was noted to have swelling in the lower extremities which the patient states is chronic left lower extremity greater than the right. A cardiology consultation was requested. An echocardiogram was obtained. It shows left ventricular systolic function severely impaired with an EF between 20 and 25%. There is mild pulmonary hypertension. There is mild concentric left ventricular hypertrophy did note the troponin are elevated as well as a BNP which is 18,000 patient was seen by cardiology as mentioned patient was started on IV diuretics in the form of Lasix in which the patient did diurese effectively was a noted improvement in patient's pulmonary status patient was anxious to be discharged home impression discharge Present on admission shortness of breath suspect due to acute exacerbation decompensated systolic congestive heart failure EF 20-25% per echocardiogram Present on admission chest pain suspect due to acute non-ST elevated myocardial infarction Present on admission heart palpitation shortness of breath suspect due to atrial fibrillation with RVR Chronic atrial fibrillation Present on admission hypokalemic and hypomagnesium History of breast cancer left breast Chronic edema left lower extremity Hearing loss left ear The above dictated assessment and findings were discussed with dr win . Impression and the plan of care have been dictated as directed. Latonya Correa nurse practitioner acting as a scribe for dr win Patient Condition at Discharge: Good Plan - Discharge Summary New Discharge Prescriptions: Spironolactone [Aldactone] 25 mg PO DAILY #30 tab Discharge Medication List Anastrozole [Arimidex] 1 mg PO DAILY 07/22/16 [History] Apixaban [Eliquis] 2.5 mg PO BID 07/22/16 [History] Aspirin 81 mg PO DAILY 07/22/16 [History] Furosemide [Lasix] 20 mg PO DAILY 07/22/16 [History] Isosorbide Mononitrate ER [Imdur] 30 mg PO DAILY 07/22/16 [History] Labetalol [Trandate] 200 mg PO BID 07/22/16 [History] Latanoprost [Xalatan 0.005%] 1 drop LEFT EYE HS 07/22/16 [History] Losartan Potassium [Cozaar] 100 mg PO DAILY 07/22/16 [History] NIFEdipine [NIFEdipine ER] 30 mg PO DAILY 07/22/16 [History] Simvastatin [Zocor] 10 mg PO HS 07/22/16 [History] Spironolactone [Aldactone] 25 mg PO DAILY #30 tab 07/25/16 [Rx] Follow up Appointment(s)/Referral(s): [facility], [NON-STAFF] - As Needed Nonstaff,Physician [Primary Care Provider] - 1-2 days Fei Win MD [STAFF PHYSICIAN] - 07/29/16 Farhat Vinson MD [STAFF PHYSICIAN] - 1 Week Discharge Disposition: HOME WITH HOME HEALTH SERVICES
--- NOTE | 2016-07-25 15:36 | P.PN ---
Subjective Principal diagnosis: CHF This is a pleasant 81-year-old female patient who never seen a health data analyst in this area with a past medical history significant for chronic atrial fibrillation, hypertension, dyslipidemia, lives in assisted living and who is also a poor historian was brought to the emergency room because she was not feeling well. Patient was also found to be in atrial fibrillation with rapid ventricular response on admission and was treated for heart failure. Echocardiogram with Doppler study was performed which revealed an ejection fraction of 20-25% with severe global hypokinesia. Aldactone was added to her medication regime today. Her weight today is down 1 kg. We will also decrease the aspirin to 81 mg daily. Objective - Vital Signs Vital signs: Vital Signs Temp 97.4 F L 07/25/16 08:00 Pulse 88 07/25/16 12:00 Resp 18 07/25/16 12:00 BP 101/50 07/25/16 12:00 Pulse Ox 99 07/25/16 12:00 Intake & Output 07/24/16 07/25/16 07/25/16 18:59 06:59 18:59 Intake Total 336 600 240 Output Total 350 200 Balance 336 250 40 Weight 56.5 kg Intake: IV 200 Magnesium Sulfate-D5w Pmx 200 1 gm In Dextrose/Water 1 100ml.bag @ 100 mls/hr IVPB Q1H [facility] Rx#: [id number] Oral 336 400 240 Output: Urine 350 200 Other: Voiding Method Toilet # Voids 2 1 1 # Bowel Movements 0 - Exam PHYSICAL EXAMINATION: HEENT: [Head is atraumatic, normocephalic. Pupils equal, round. Neck is supple. There is no elevated jugular venous pressure.] HEART EXAMINATION: Heart S1 and S2 irregularly irregular CHEST EXAMINATION: Lungs are clear with mild diminished air entry to bilateral bases. ABDOMEN: [ Soft, nontender. Bowel sounds are heard. No organomegaly noted]. EXTREMITIES:[ 2+ peripheral pulses with no evidence of peripheral edema and no calf tenderness noted]. NEUROLOGIC [patient is awake, alert and oriented -3.] . - Labs CBC & Chem 7: 07/24/16 05:51 07/25/16 05:46 Labs: Abnormal Lab Results - Last 24 Hours (Table) 07/25/16 07/25/16 Range/Units 00:05 05:46 BUN 21 H (7-17) mg/dL Total Protein 5.9 L (6.3-8.2) g/dL Albumin 3.4 L (3.5-5.0) g/dL Ur Leukocyte Esterase Small H (Negative) Microbiology - Last 24 Hours (Table) 07/25/16 00:05 Urine Culture - Preliminary Urine,Clean Catch Assessment and Plan (1) Systolic CHF, acute on chronic Status: Acute (2) Paroxysmal a-fib Status: Acute (3) Kidney disease Status: Acute (4) Hyperlipemia Status: Acute Plan: From cardiology's perspective, patient may be discharged today. IV Lasix has been discontinued and patient has been started on oral diuretics. We will also add Aldactone to her medication regime. Upon discharge patient can follow-up with Dr. Mcrae in the office 2 weeks post discharge. DNP note has been reviewed, I agree with a documented findings and plan of care. Patient was seen and examined.
[2016-07-25] MEDS ORDERED: FUROSEMIDE 20 MG TAB PO SCH (16:00)
--- NOTE | 2016-07-25 18:52 | PN ---
DATE OF SERVICE: 07/25/2016 CHIEF COMPLAINT: Chest pain, congestive heart failure, atrial fibrillation. HISTORY OF PRESENT ILLNESS: This lady is doing well. She has had no further pain. Breathing is doing well and she seems to be stable. She has been released from Cardiology's point of view. PHYSICAL EXAM: CHEST: Clear. Cardiac exam is unchanged. ABDOMEN: Soft, nontender. EXTREMITIES: Normal. Blood pressure is better. IMPRESSION: 1. Unstable angina. 2. Chronic atrial fibrillation. 3. Congestive heart failure. 4. Hypertension. PLAN: Probably home today. This will be arranged by the nurse practitioner.
[2016-07-26] MEDS ORDERED: ASPIRIN 81 MG CHEW PO SCH (09:00)
== END 2016-07-25 17:20 | disposition home health service (06) | DRG 280 ==
LOC: EC 17:48 → 6SEL 21:11
PROVIDERS: ADMIT Family Medicine; ATTEND Family Medicine
DX: I21.4 Non-ST elevation (NSTEMI) myocardial infarction (principal); I50.23 Acute on chronic systolic (congestive) heart failure; I27.2 Other secondary pulmonary hypertension; E83.42 Hypomagnesemia; E87.6 Hypokalemia; I48.2 Chronic atrial fibrillation; I16.0 Hypertensive urgency; I65.22 Occlusion and stenosis of left carotid artery; I13.0 Hypertensive heart and chronic kidney disease with heart failure and stage 1 through stage 4 chronic kidney disease, or unspecified chronic kidney disease; I48.0 Paroxysmal atrial fibrillation; N18.9 Chronic kidney disease, unspecified; I83.91 Asymptomatic varicose veins of right lower extremity; F03.90 Unspecified dementia, unspecified severity, without behavioral disturbance, psychotic disturbance, mood disturbance, and anxiety; E78.5 Hyperlipidemia, unspecified; H91.92 Unspecified hearing loss, left ear; Z85.3 Personal history of malignant neoplasm of breast; Z79.82 Long term (current) use of aspirin; Z86.73 Personal history of transient ischemic attack (TIA), and cerebral infarction without residual deficits; Z85.828 Personal history of other malignant neoplasm of skin; Z79.01 Long term (current) use of anticoagulants; Z85.42 Personal history of malignant neoplasm of other parts of uterus; Z87.891 Personal history of nicotine dependence; Z79.899 Other long term (current) drug therapy; Z90.710 Acquired absence of both cervix and uterus; Z90.49 Acquired absence of other specified parts of digestive tract; Z90.12 Acquired absence of left breast and nipple
CPT/HCPCS: 36415; 71020; 80053; 80061; 81001; 82550; 82553; 83735; 83880; 84443; 84484; 85025; 85610; 85730; 87086; 93005; 93306; 94640; 96361; 96374; 99285

== ENCOUNTER 2016-08-02 10:44 | Emergency (ER) | payer MEDICARE ==
[2016-08-02] MEDS ORDERED: LORazepam 2 MG/ML SYRINGE IV STA ×2 (11:06→12:22)
--- NOTE | 2016-08-02 11:08 | ED ---
General Adult HPI - General Stated complaint: Depression Time Seen by Provider: 08/02/16 10:54 Source: patient, family, EMS, RN notes reviewed Mode of arrival: EMS Limitations: altered mental status - History of Present Illness Initial comments: Patient is a pleasant 81-year-old female presenting with family for anxiety. Patient just found out this morning that her son . Patient is very anxious and worked up. Family is concerned regarding this. Patient is unable to provide further history secondary to her anxious state. Family states patient has been doing well prior to this. - Related Data Home Medications Medication Instructions Recorded Confirmed Apixaban [Eliquis] 2.5 mg PO BID 07/22/16 08/02/16 Aspirin 81 mg PO DAILY 07/22/16 08/02/16 Furosemide [Lasix] 40 mg PO DAILY 07/22/16 08/02/16 Isosorbide Mononitrate ER [Imdur] 30 mg PO DAILY 07/22/16 08/02/16 Labetalol [Trandate] 200 mg PO BID 07/22/16 08/02/16 Latanoprost [Xalatan 0.005%] 1 drop LEFT EYE HS 07/22/16 08/02/16 Losartan Potassium [Cozaar] 100 mg PO DAILY 07/22/16 08/02/16 NIFEdipine [NIFEdipine ER] 30 mg PO DAILY 07/22/16 08/02/16 Simvastatin [Zocor] 10 mg PO HS 07/22/16 08/02/16 Brimonidine Tartrate [Alphagan P 1 drops LEFT EYE TID 08/02/16 08/02/16 0.1% Ophth Soln] Dextran 70/Hypromellose [Genteal 1 drop BOTH EYES DAILY PRN 08/02/16 08/02/16 Tears 0.1%-0.3% Drop] Dorzolamide-Timolol 2%/0.5% 1 drop LEFT EYE BID 08/02/16 08/02/16 [dorzolamide-Timolol 2%/0.5%] Previous Rx's Medication Instructions Recorded LORazepam [Ativan] 1 mg PO TID PRN #10 tab 08/02/16 Allergies Allergy/AdvReac Type Severity Reaction Status Date / Time No Known Allergies Allergy Verified 08/02/16 11:31 Review of Systems ROS Statement: Those systems with pertinent positive or pertinent negative responses have been documented in the HPI. ROS Other: All systems not noted in ROS Statement are negative. Limitations: ROS unobtainable due to patients medical condition Past Medical History Past Medical History: Atrial Fibrillation, Cancer, Heart Failure, Hyperlipidemia , Syncope Additional Past Medical History / Comment(s): L breast cancer with surgery, skin cancer with removals, endometrial cancers with surgery, TIA 2009, left caratid dx, chronic lower leg edema especially left leg, [place] bilaterally with L ear worse, History of Any Multi-Drug Resistant Organisms: None Reported Past Surgical History: Breast Surgery, Hysterectomy Additional Past Surgical History / Comment(s): left breast lumpectomy, post op L breast incision dehisence with surgery, hysterectomy with lymphectomy, skin cancer removals, pt denies cholecystectomy/hiatal hernia repair but were listed in PMH. Past Anesthesia/Blood Transfusion Reactions: No Reported Reaction Past Psychological History: No Psychological Hx Reported Additional Psychological History / Comment(s): Pt resides in an assisted living apartment (cannot recall the name at this time). She states she can make her own meals or go to the [facility]. She manages her own medications. Her daughter checks on her often and cellophane casting machine repairer take her to appts. Smoking Status: Former smoker Past Alcohol Use History: None Reported Additional Past Alcohol Use History / Comment(s): Pt states she started smoking in 1952 and quit in 1983. Past Drug Use History: None Reported - Past Family History Mother Family Medical History: No Reported History Father History Unknown: Yes Additional Family Medical History / Comment(s): Father when pt was young after being run over by a vehicle. General Exam Limitations: altered mental status (Anxious) General appearance: anxious Head exam: Present: atraumatic, normocephalic Eye exam: Present: normal appearance, PERRL ENT exam: Present: normal oropharynx Neck exam: Present: normal inspection Respiratory exam: Present: normal lung sounds bilaterally Cardiovascular Exam: Present: regular rate, normal rhythm GI/Abdominal exam: Present: soft. Absent: tenderness Extremities exam: Present: other (Right leg swelling which family states is chronic). Absent: calf tenderness Neurological exam: Present: alert Psychiatric exam: Present: agitated, anxious Skin exam: Absent: rash Course Vital Signs 08/02/16 08/02/16 08/02/16 11:03 11:19 12:20 Temperature 97.2 F L Pulse Rate 95 101 H 113 H Respiratory 22 20 20 Rate Blood Pressure 154/104 142/67 152/88 O2 Sat by Pulse 98 97 Oximetry Medical Decision Making - Medical Decision Making Patient reevaluated and somewhat improved. Patient is still tearful however not as anxious. Patient is conversational with the family. Family and patient are comfortable with discharge at this time. Disposition Clinical Impression: Anxiety Disposition: HOME SELF-CARE Condition: Stable Instructions: Anxiety (ED) Additional Instructions: Please follow-up with primary care physician in the next day or 2 for recheck. Return for chest pain or difficulty breathing, uncontrolled anxiety, unable take care of herself, worsening symptoms or other concerns. Prescriptions: LORazepam [Ativan] 1 mg PO TID PRN #10 tab PRN Reason: Anxiety Referrals: None,Stated [Primary Care Provider] - 1-2 days José Sorto MD [STAFF PHYSICIAN] - 1-2 days Najma Ruano MD [STAFF PHYSICIAN] - 1-2 days
[2016-08-02 11:21] VITALS: RESP 20
[2016-08-02 14:15] VITALS: BP 124/78; PULSE 67; TEMP 98
== END 2016-08-02 14:15 | disposition home or self-care (01) ==
LOC: EC 10:44
DX: F41.9 Anxiety disorder, unspecified (principal); I50.9 Heart failure, unspecified; E78.5 Hyperlipidemia, unspecified; Z79.01 Long term (current) use of anticoagulants; Z79.82 Long term (current) use of aspirin; Z86.73 Personal history of transient ischemic attack (TIA), and cerebral infarction without residual deficits; Z79.899 Other long term (current) drug therapy; Z87.891 Personal history of nicotine dependence; I48.91 Unspecified atrial fibrillation
CPT/HCPCS: 96374 ×2; 96376 ×2; 99284 ×2; J2060

== ENCOUNTER 2017-08-28 19:25 | Emergency (ER) | payer MEDICARE ==
[2017-08-28 19:30] VITALS: RESP 16; TEMP 97
--- NOTE | 2017-08-28 20:05 | ED ---
Psych HPI - General Chief Complaint: Altered Mental Status Stated Complaint: Dementia/Mental Health Time Seen by Provider: 08/28/17 19:41 Source: EMS Mode of arrival: EMS Limitations: altered mental status - History of Present Illness Initial Comments: Patient sent from [facility] for behavior problems. Patient reportedly getting up and trying to leave facility. Patient reportedly combative with staff trying to hit. Per review of progress notes sent with patient patient has a history of multiple similar episodes, patient is on Seroquel. Patient has many complaints about feeling like she does not need to be at facility. Patient has history of encephalopathy, dementia with behavioral disturbances. No other psychiatric history. Patient lying comfortably in bed, has no complaints at this time. Patient denies pain. History is limited as patient is poor historian, no caregivers or family at bedside. - Related Data Home Medications Medication Instructions Recorded Confirmed Apixaban [Eliquis] 2.5 mg PO DAILY 07/22/16 08/28/17 Isosorbide Mononitrate ER [Imdur] 30 mg PO DAILY 07/22/16 08/28/17 Latanoprost [Xalatan 0.005%] 1 drop BOTH EYES HS 07/22/16 08/28/17 Simvastatin [Zocor] 10 mg PO HS 07/22/16 08/28/17 Brimonidine Tartrate [Alphagan P 1 drops BOTH EYES Q8H 08/02/16 08/28/17 0.1% Ophth Soln] Acetaminophen Tab [Tylenol Tab] 650 mg PO Q6H PRN MDD 3000MG 08/28/17 08/28/17 Aspirin 81 mg PO DAILY 08/28/17 08/28/17 Ativan Solution 2mg/Ml 1 mg IM Q12H PRN 08/28/17 08/28/17 Cefuroxime [Ceftin] 250 mg PO Q12H 08/28/17 08/28/17 Dorzolamide 2% [Trusopt 2%] 1 drop RIGHT EYE Q12H 08/28/17 08/28/17 Metoprolol/Hydrochlorothiazide 0.5 tab PO Q12H 08/28/17 08/28/17 [Lopressor Hct 50-25 Tablet] Omeprazole 20 mg PO DAILY 08/28/17 08/28/17 QUEtiapine [SEROquel] 25 mg PO HS 08/28/17 08/28/17 Allergies Allergy/AdvReac Type Severity Reaction Status Date / Time No Known Allergies Allergy Verified 08/28/17 19:40 Review of Systems ROS Statement: Those systems with pertinent positive or pertinent negative responses have been documented in the HPI. ROS Other: All systems not noted in ROS Statement are negative. Limitations: ROS unobtainable due to patients medical condition Psychiatric: Reports: other (Aggressive behavior) Past Medical History Past Medical History: Atrial Fibrillation, Cancer, Heart Failure, COPD, CVA/TIA , Dementia, GERD/Reflux, Hyperlipidemia, Hypertension, Syncope Additional Past Medical History / Comment(s): L breast cancer with surgery, skin cancer with removals, endometrial cancers with surgery, TIA 2008, left carotid dx, chronic lower leg edema especially left leg, [place] bilaterally with L ear worse. History of Any Multi-Drug Resistant Organisms: None Reported Past Surgical History: Breast Surgery, Hysterectomy Additional Past Surgical History / Comment(s): left breast lumpectomy, post op L breast incision dehisence with surgery, hysterectomy with lymphectomy, skin cancer removals, pt denies cholecystectomy/hiatal hernia repair but were listed in PMH. Past Anesthesia/Blood Transfusion Reactions: No Reported Reaction Past Psychological History: No Psychological Hx Reported Smoking Status: Former smoker Past Alcohol Use History: None Reported Past Drug Use History: None Reported - Past Family History Mother Family Medical History: No Reported History Father History Unknown: Yes Additional Family Medical History / Comment(s): Father when pt was young after accident. General Exam - General Exam Comments Initial Comments: Laying in all in bed sleeping comfortably. Easily awoken. No acute distress. Does not appear in pain. Not ill appearing. Limitations: altered mental status General appearance: alert, in no apparent distress Head exam: Present: atraumatic, normocephalic Eye exam: Present: normal appearance, PERRL, EOMI ENT exam: Present: mucous membranes moist Neck exam: Present: normal inspection, full ROM. Absent: tenderness Respiratory exam: Present: normal lung sounds bilaterally. Absent: respiratory distress, wheezes, rales, rhonchi Cardiovascular Exam: Present: regular rate, normal rhythm GI/Abdominal exam: Present: soft. Absent: distended, tenderness, guarding, rebound Extremities exam: Present: other (No gross deformities of the extremities.) Back exam: Absent: tenderness Neurological exam: Present: alert, other (GCS 15. Follows basic commands. Oriented to name, date of , patient does not know place or year. Moves all extremities. No gross focal neural deficits) Psychiatric exam: Present: normal affect, normal mood, other (Patient is resting comfortably in bed. Answers some questions. No violent behavior.) Skin exam: Present: warm, dry, intact, normal color. Absent: rash (No obvious rashes) Course Vital Signs 08/28/17 19:27 Temperature 97.0 F L Pulse Rate 75 Respiratory 16 Rate Blood Pressure 133/79 O2 Sat by Pulse 93 L Oximetry Medical Decision Making - Medical Decision Making No significant lab abnormalities. Patient does not appear to have urinary tract infection on urinalysis. Patient resting comfortably in bed during her time in the ER. No combative or aggressive behavior. Daughter at bedside updated without results. Daughter states patient has been declining since May of last year. Was moved into nursing facility approximately 5 weeks ago. Patient may be having worsening dementia and sundowning from environment change. Patient to continue home medications. Discussed with daughter need for review of medications by prescribing physician, possible referral to psychiatrist or clutch mechanic. Daughter understands and agrees. Daughter feels comfortable having patient being transferred back to facility at this time. All questions answered. - Lab Data Result diagrams: 08/28/17 20:25 08/28/17 20:25 Lab Results 08/28/17 08/28/17 08/28/17 Range/Units 20:25 20:25 20:25 WBC 7.3 (3.8-10.6) k/uL RBC 4.44 (3.80-5.40) m/uL Hgb 13.5 (11.4-16.0) gm/dL Hct 45.4 (34.0-46.0) % MCV 102.2 H D (80.0-100.0) fL MCH 30.5 (25.0-35.0) pg MCHC 29.8 L (31.0-37.0) g/dL RDW 14.3 (11.5-15.5) % Plt Count 225 (150-450) k/uL Neutrophils % 61 % Lymphocytes % 26 % Monocytes % 8 % Eosinophils % 2 % Basophils % 1 % Neutrophils # 4.5 (1.3-7.7) k/uL Lymphocytes # 1.9 (1.0-4.8) k/uL Monocytes # 0.6 (0-1.0) k/uL Eosinophils # 0.1 (0-0.7) k/uL Basophils # 0.0 (0-0.2) k/uL Hypochromasia Moderate Macrocytosis Slight Sodium 148 H (137-145) mmol/L Potassium 4.8 (3.5-5.1) mmol/L Chloride 109 H (98-107) mmol/L Carbon Dioxide 24 (22-30) mmol/L Anion Gap 15 mmol/L BUN 21 H (7-17) mg/dL Creatinine 0.70 (0.52-1.04) mg/dL Est GFR (MDRD) Af Amer >60 (>60 ml/min/1.73 sqM) Est GFR (MDRD) Non-Af >60 (>60 ml/min/1.73 sqM) Glucose 118 H (74-99) mg/dL Calcium 10.2 (8.4-10.2) mg/dL Urine Color Dark Yellow Urine Appearance Clear (Clear) Urine pH 5.5 (5.0-8.0) Ur Specific [place] 1.025 (1.001-1.035) Urine Protein 1+ H (Negative) Urine Glucose (UA) Negative (Negative) Urine Ketones Trace H (Negative) Urine Blood Negative (Negative) Urine Nitrite Negative (Negative) Urine Bilirubin 1+ H (Negative) Urine Urobilinogen 6.0 (<2.0) mg/dL Ur Leukocyte Esterase Trace H (Negative) Urine RBC 2 (0-5) /hpf Urine WBC 3 (0-5) /hpf Ur Squamous Epith Cells 1 (0-4) /hpf Hyaline Casts 11 H (0-2) /lpf Urine Mucus Many H (None) /hpf Salicylates <1.0 mg/dL Urine Opiates Screen Not Detected (NotDetected) Ur Oxycodone Screen Not Detected (NotDetected) Urine Methadone Screen Not Detected (NotDetected) Ur Propoxyphene Screen Not Detected (NotDetected) Acetaminophen <10.0 ug/mL Ur Barbiturates Screen Not Detected (NotDetected) U Tricyclic Antidepress Detected H (NotDetected) Ur Phencyclidine Scrn Not Detected (NotDetected) Ur Amphetamines Screen Not Detected (NotDetected) U Methamphetamines Scrn Not Detected (NotDetected) U Benzodiazepines Scrn Detected H (NotDetected) Urine Cocaine Screen Not Detected (NotDetected) U Marijuana (THC) Screen Not Detected (NotDetected) Disposition Clinical Impression: Behavior problem Disposition: HOME SELF-CARE Condition: Good Instructions: Dementia (ED) Additional Instructions: Return to Emergency if new or worsening symptoms. Follow up their primary care physician for reevaluation in one to 2 days. Referrals: Corey Conroy MD [Primary Care Provider] - 1-2 days
[2017-08-28 20:38] LABS: Basophils % (A) 1 %; Eosinophils # (A) 0.1 k/uL (0-0.7); Eosinophils % (A) 2 %; HCT 45.4 % (34.0-46.0); HGB 13.5 gm/dL (11.4-16.0); Hypochromasia Moderate; Lymphocytes # (A) 1.9 k/uL (1.0-4.8); Lymphocytes % (A) 26 %; MCH 30.5 pg (25.0-35.0); MCHC 29.8 g/dL (31.0-37.0); Macrocytosis Slight; Mean Platelet Volume 8.4; Monocytes # (A) 0.6 k/uL (0-1.0); Monocytes % (A) 8 %; Neutrophils # (A) 4.5 k/uL (1.3-7.7); Neutrophils % (A) 61 %; Platelet Count 225 k/uL (150-450); RBC 4.44 m/uL (3.80-5.40); RDW 14.3 % (11.5-15.5); WBC 7.3 k/uL (3.8-10.6)
[2017-08-28 20:40] LABS: Appearance,Urine Clear (Clear); Bilirubin,Urine 1+ (Negative); Blood,Urine Negative (Negative); Color,Urine Dark Yellow; Glucose,Urine (UA) Negative (Negative); Hyaline Casts,Urine 11 /lpf (0-2); Ketones,Urine Trace (Negative); Leukocyte Esterase,Urine Trace (Negative); Mucus,Urine Many /hpf; Nitrite,Urine Negative (Negative); PH, Urine 5.5 (5.0-8.0); Protein,Urine 1+ (Negative); RBC,Urine 2 /hpf (0-5); Specific Gravity,Urine 1.025 (1.001-1.035); Squamous Epithelial Cell,Urine 1 /hpf (0-4); WBC,Urine 3 /hpf (0-5)
[2017-08-28 20:42] LABS: MCV 102.2 fL (80.0-100.0)
[2017-08-28 20:51] LABS: Amphetamine Screen,Urine Not Detected (NotDetected); Barbiturate Screen,Urine Not Detected (NotDetected); Benzodiazepines Screen,Urine Detected (NotDetected); Cocaine Screen,Urine Not Detected (NotDetected); Methadone Screen, Urine Not Detected (NotDetected); Opiate Screen,Urine Not Detected (NotDetected); Oxycodone Screen, Urine Not Detected (NotDetected); Phencyclidine Screen,Urine Not Detected (NotDetected); Tricyclic Antidepressant,Urine Detected (NotDetected); Urn Cannabinoid Scrn Not Detected (NotDetected)
[2017-08-28 20:53] LABS: Acetaminophen <10.0 ug/mL; Anion Gap 15 mmol/L; Blood Urea Nitrogen 21 mg/dL (7-17); Calcium 10.2 mg/dL (8.4-10.2); Carbon Dioxide 24 mmol/L (22-30); Chloride 109 mmol/L (98-107); Glucose 118 mg/dL (74-99); Potassium 4.8 mmol/L (3.5-5.1); Salicylate <1.0 mg/dL; Sodium 148 mmol/L (137-145)
[2017-08-28 22:17] VITALS: BP 130/76; PULSE 72
== END 2017-08-28 23:12 | disposition home or self-care (01) ==
LOC: EC 19:25 → EEVIPCON 19:25 → EC 23:12
DX: F03.91 Unspecified dementia, unspecified severity, with behavioral disturbance (principal); I48.91 Unspecified atrial fibrillation; K21.9 Gastro-esophageal reflux disease without esophagitis; E78.5 Hyperlipidemia, unspecified; I11.0 Hypertensive heart disease with heart failure; I50.9 Heart failure, unspecified; Z85.3 Personal history of malignant neoplasm of breast; Z85.828 Personal history of other malignant neoplasm of skin; Z85.42 Personal history of malignant neoplasm of other parts of uterus; Z87.891 Personal history of nicotine dependence; Z98.890 Other specified postprocedural states; Z86.73 Personal history of transient ischemic attack (TIA), and cerebral infarction without residual deficits; Z79.01 Long term (current) use of anticoagulants; Z79.82 Long term (current) use of aspirin; Z79.899 Other long term (current) drug therapy
CPT/HCPCS: 36415; 80048; 80306; 81001; 83520; 85025; 87086; 99285